=== PATIENT | female | born 1965 | race Two or more races ===

== ENCOUNTER → 2022-05-25 | Emergency (ER) | payer BC ==
[~2022-05-25] VITALS: Ht 154.9 cm; Wt 81.6 kg
[~2022-05-25] MED LIST: ACETAMINOPHEN 325 MG TABLET PO ONE; ACETAMINOPHEN ES 500 MG TABLET ONE; NAPR-1164 PO; TYL2T PO
[2022-05-25 17:08] VITALS: BP 138/92
== END | disposition home or self-care (01) ==
LOC: ER 14:43
DX: S50.12XA Contusion of left forearm, initial encounter (principal); S80.11XA Contusion of right lower leg, initial encounter; S09.90XA Unspecified injury of head, initial encounter; V89.2XXA Person injured in unspecified motor-vehicle accident, traffic, initial encounter; Y93.89 Activity, other specified; Y92.89 Other specified places as the place of occurrence of the external cause; Y99.8 Other external cause status
CPT/HCPCS: 70450-TC; 73090-TC; 73590-TC